=== PATIENT | female | born 1995 | race Caucasian/White ===

== ENCOUNTER 2017-01-14 11:18 | Emergency (ER) | payer OTHER ==
[~2017-01-14] VITALS: Wt 74.5 kg
[2017-01-14] MEDS ORDERED: KETOROLAC 30 MG INJ IM STA (13:52)
[2017-01-14 13:59] LABS: URINE BLOOD (Dip) POC Negative (NEGATIVE)
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
[2017-01-14] MEDS ORDERED: IBUP-1542 PO (15:06)
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
[2017-01-14 15:15] VITALS: BP 120/85; PULSE 77; RESP 18
== END 2017-01-14 15:16 | disposition home or self-care (01) ==
LOC: FTE 11:18
DX: M25.562 Pain in left knee (principal)
CPT/HCPCS: 73562; 81003; 96372; J1885; Z7502